=== PATIENT | male | born 1980 | race Caucasian/White ===

== ENCOUNTER 2018-11-20 00:47 | Emergency (ER) | payer BC ==
[~2018-11-20] VITALS: Ht 180.3 cm; Wt 74.8 kg
--- NOTE | 2018-11-20 01:07 | NUR ---
ED Nurse Note: Pt arrived ED from home, c/o right ankle pain 5/10 after twisted at home today. Pt is A/O X4, Vital signs stable at this time, waiting for orders.
--- NOTE | 2018-11-20 01:25 | Emergency Room Report ---
History of Present Illness General Chief Complaint: Lower Extremity Injury Source: Patient Present Illness HPI Is a 38-year-old male with no significant past medical history. He presents with 200 right ankle pain. He was dancing and twisted his ankle. Complaining of throbbing pain to the lateral aspect. Onset about 3-4 hours ago. Pain with walking. Better with rest. Pain is 7 out of 10. No other injury. Allergies: Coded Allergies: No Known Allergies (Unverified , 11/20/18) Patient History Past Medical History: see triage record, old chart reviewed Past Surgical History: none Pertinent Family History: none Social History: Denies: smoking Immunizations: other Reviewed Nursing Documentation: PMH: Agreed; PSxH: Agreed Nursing Documentation-PMH Past Medical History: No Stated History Review of Systems Eye: Denies: eye pain, blurred vision ENT: Denies: ear pain, nose congestion, throat swelling Respiratory: Denies: cough, shortness of breath Cardiovascular: Denies: chest pain, palpitations Gastrointestinal: Denies: abdominal pain, diarrhea, nausea, vomiting Musculoskeletal: Reports: joint pain; Denies: back pain Skin: Denies: rash Neurological: Denies: headache, numbness Endocrine: Denies: increased thirst, increased urine Hematologic/Lymphatic: Denies: easy bruising All Other Systems: negative except mentioned in HPI Physical Exam Vital Signs Date Time Temp Pulse Resp B/P (MAP) Pulse Ox O2 Delivery O2 Flow Rate FiO2 11/20/18 01:00 98.6 75 16 120/66 98 Room Air vitals normal Sp02 EP Interpretation: reviewed, normal General Appearance: well appearing, no apparent distress, alert Head: normocephalic, atraumatic Eyes: bilateral eye PERRL, bilateral eye EOMI ENT: hearing grossly normal, normal pharynx Neck: full range of motion, supple, no meningismus Respiratory: chest non-tender, lungs clear, normal breath sounds Cardiovascular #1: regular rate, rhythm, no murmur Gastrointestinal: normal bowel sounds, non tender, no mass, no organomegaly, no bruit, non-distended Musculoskeletal: back normal, gait/station normal, normal range of motion, other - right ankle: Tender to palpation over ATFL. NVI. pulses normal Neurologic: alert, oriented x3 Psychiatric: mood/affect normal Skin: warm/dry Procedures Splinting Splinting : Consent: Verbal Location: right ankle Pre-Made Type: aircast Pre-Proc Neuro Vasc Exam: normal Post-Proc Neuro Vasc Exam: normal Patient Tolerated: Well Complications: None Medical Decision Making Diagnostic Impression: Primary Impression: Sprain of ankle, right Qualified Codes: S93.491A - Sprain of other ligament of right ankle, initial encounter ER Course Patient with ankle sprain. No fracture dislocation. We'll discharge home. Other X-Ray Diagnostic Results Other X-Ray Diagnostic Results : X-Ray ordered: right ankle x-rays # of Views/Limited Vs Complete: 3 View Indication: Pain EP Interpretation: Yes Interpretation: no dislocation, no soft tissue swelling, no fractures Impression: No acute disease Electronically Signed by: Tommy Amado MD Last Vital Signs Date Time Temp Pulse Resp B/P (MAP) Pulse Ox O2 Delivery O2 Flow Rate FiO2 11/20/18 01:00 98.6 75 16 120/66 98 Room Air Status: improved Disposition: HOME, SELF-CARE Condition: Stable Scripts Ibuprofen* (MOTRIN*) 600 Mg Tablet 600 MG ORAL THREE TIMES A DAY, #30 TAB 0 Refills Prov: Tommy Amado MD 11/20/18 Patient Instructions: Ankle Sprain Additional Instructions: Elevate leg. Ice pack to the area. Follow-up with your doctor in 7 days. Return if worse. Tommy Amado MD Nov 20, 2018 01:24
[2018-11-20] MEDS ORDERED: IBUPROFEN600 MG ORAL (01:33)
[2018-11-20 01:39] VITALS: BP 123/64
--- NOTE | 2018-11-20 01:39 | NUR ---
ER DISCHARGE NOTE: Patient is cleared to be discharged per Dr. Amado. X-ray done, no fracture was found at this time. Ankle splint applied. Provided crutches. Pt is aox4 on room air with stable vital signs. Pt was given dc and prescription instructions and was able to verbalize understanding. Pt's ID band removed. Pt is able to ambulate well with crutches.Pt took all belongings.
--- NOTE | 2018-11-20 16:07 | Diagnostic Imaging Report ---
Indication: Pain in right ankle after twisting it well dancing Technique: 3 views of the right ankle Comparison: none Findings: No acute fractures. No dislocations. Joint spaces are preserved. Normal mineralization. No radiopaque foreign body. Impression: Negative
== END 2018-11-20 01:39 | disposition home or self-care (01) ==
LOC: EMR 01:15
DX: S93.491A Sprain of other ligament of right ankle, initial encounter (principal); X50.1XXA Overexertion from prolonged static or awkward postures, initial encounter; Y93.41 Activity, dancing; Y92.9 Unspecified place or not applicable
CPT/HCPCS: 29515; 99283